=== PATIENT | female | born 1950 | race Caucasian/White ===

== ENCOUNTER 2017-09-09 13:57 | Emergency (ER) | payer MEDICARE, OTHER ==
[2017-09-09] MEDS: GLUCAGON,HUMAN RECOMBINANT 1 MG/ML VIAL. IM ×2 (14:50→15:28)
[2017-09-09] MEDS: ONDANSETRON ODT 4 MG TAB.RAPDIS. PO ×2 (15:00→15:28)
[2017-09-09] MEDS: MIDAZOLAM HCL/PF 2 MG/2 ML VIAL. IM (15:00)
== END 2017-09-09 15:36 | disposition home or self-care (01) ==
LOC: ER 13:57
DX: R13.13 Dysphagia, pharyngeal phase (principal)
CPT/HCPCS: 96372; 99283-25; J1610; Q0162